=== PATIENT | female | born 1975 | race Caucasian/White ===

== ENCOUNTER 2016-04-30 15:04 | Emergency (ER) | payer MEDICAID ==
[~2016-04-30] VITALS: Ht 157.5 cm; Wt 58.5 kg
[~2016-04-30 15:04] MED LIST: HYDR-906 PO; ONDA4TAB14 PO; htn meds
[2016-04-30 15:10] VITALS: Ht 157.5 cm; Wt 58.5 kg
[2016-04-30] MEDS ORDERED: morphine 2 MG INJ IV STA (16:17)
[2016-04-30] MEDS ORDERED: ONDANSETRON 4 MG INJ ONE (16:29)
[2016-04-30] MEDS ORDERED: ONDANSETRON 4 MG INJ IV STA (16:39)
[2016-04-30 16:41] LABS: BASOPHILS % 0.1 % (0.0-2.0); EOSINOPHILS % 0.2 % (0.0-7.0); HEMATOCRIT 41.2 % (37.0-47.0); HEMOGLOBIN 13.9 g/dl (12.0-16.0); LYMPHOCYTES # 1.4 10^3/ul (0.8-2.9); LYMPHOCYTES % 11.6 % (15.0-51.0); MEAN CORPUSCULAR HEMOGLOBIN 30.6 pg (29.0-33.0); MEAN CORPUSCULAR HGB CONC 33.8 g/dl (32.0-37.0); MEAN CORPUSCULAR VOLUME 90.4 fl (82.0-101.0); MEAN PLATELET VOLUME 7.9 fl (7.4-10.4); MONOCYTE # 0.2 10^3/ul (0.3-0.9); MONOCYTES % 1.7 % (0.0-11.0); NEUTROPHIL # 10.5 10^3/ul (1.6-7.5); NEUTROPHILS % 86.4 % (39.0-77.0); PLATELET COUNT 291 10^3/UL (140-440); RED BLOOD COUNT 4.56 10^6/ul (4.20-5.40); RED CELL DISTRIBUTION WIDTH 14.3 % (11.5-14.5); UNCORRECTED WBC 12.1 10^3/ul (4.8-10.8); WHITE BLOOD COUNT 12.1 10^3/ul (4.8-10.8)
--- NOTE | 2016-04-30 16:42 | ERD ---
ER Documentation Chief Complaint Date/Time DATE: 04/30/16 TIME: 16:37 Chief Complaint UPPER RT ABD PAIN, HX GAL STONES HPI 40-year-old female presents to ER with epigastric and right upper quadrant pain x 3 hours. Patient describes pain as sharp, 8/10 scale. States pain is non radiating. Patient denies any nausea or vomiting. No fevers or chills. Patient denies any palpitations. Patient denies any dyspnea on exertion or dyspnea. No dysuria or hematuria. No constipation or diarrhea. patient denies any acid reflux. Patient denies any sick contacts. Patient did not take any medication for pain. Recently gave vaginally about 1 month ago and states patient has been taking medications for "blood pressure." No cough, shortness breath or difficulty breathing. ROS All systems reviewed and are negative except as per history of present illness. Medications Home Meds Active Scripts Ondansetron Hcl* (Zofran*) 4 Mg Tablet, 4 MG PO Q6H for NAUSEA AND/OR VOMITING, #10 TAB Prov:GABRIEL RICE NP 04/30/16 Ibuprofen* (Motrin*) 600 Mg Tab, 600 MG PO Q6, #15 TAB Prov:GABRIEL RICE NP 04/30/16 Hydrocodone/Acetaminophen (Edison 5-325 Tablet) 1 Each Tablet, 1 TAB PO Q6H Y for PAIN, #10 TAB Prov:GABRIEL RICE NP 04/30/16 Ondansetron (Ondansetron Odt) 4 Mg Tab.rapdis, 4 MG PO Q8 Y for NAUSEA AND/OR VOMITING, #20 TAB Prov:LUCÍA FRENCH NP 04/16/16 Hydrocodone/Acetaminophen (Edison 5-325 Tablet) 1 Each Tablet, 1 TAB PO Q6H Y for SEVERE PAIN LEVEL 7-10, #20 TAB Prov:LUCÍA FRENCH NP 04/16/16 Reported Medications [htn meds] Unknown Strength No Conflict Check 04/16/16 Allergies Allergies: Coded Allergies: No Known Allergy (Unverified , 03/25/16) PMhx/Soc History of Surgery: Yes (Episiotomy) Anesthesia Reaction: No Hx Neurological Disorder: No Hx Respiratory Disorders: No Hx Cardiac Disorders: Yes (Gestational HTN) Hx Psychiatric Problems: No Hx Miscellaneous Medical Probl: Yes (GALL STONES) Hx Alcohol Use: No Hx Substance Use: No Hx Tobacco Use: No Smoking Status: Never smoker Physical Exam Vitals Vital Signs Date Time Temp Pulse Resp B/P Pulse Ox O2 Delivery O2 Flow Rate FiO2 04/30/16 18:01 98.0 59 18 140/77 99 Room Air 04/30/16 15:10 98.0 60 18 118/69 99 Physical Exam Const: writhing in pain Head: Atraumatic Eyes: Normal Conjunctiva ENT: Normal External Ears, Nose and Mouth. Neck: Full range of motion..~ No meningismus. Resp: Clear to auscultation bilaterally Cardio: Regular rate and rhythm, no murmurs Abd: Soft, non distended. Normal bowel sounds. Tenderness to epigastric region and right upper quadrant. No rebound tenderness. Skin: No petechiae or rashes Back: No midline or flank tenderness. No CVA tenderness Ext: No cyanosis, or edema Neur: Awake and alert Psych: Normal Mood and Affect Result Diagram: 04/30/16 1623 04/30/16 1623 Results 24 hrs Laboratory Tests Test 04/30/16 16:23 04/30/16 17:10 Alanine Aminotransferase (ALT/SGPT) 46IU/L Albumin 4.7g/dl Albumin/Globulin Ratio 1.23 Alkaline Phosphatase 104IU/L Anion Gap 22 Aspartate Amino Transf (AST/SGOT) 68IU/L Basophils # 0.010^3/ul Basophils % 0.1% Blood Urea Nitrogen 10mg/dl Calcium Level 9.6mg/dl Carbon Dioxide Level 23mmol/L Chloride Level 105mmol/L Creatinine 0.63mg/dl Direct Bilirubin 0.00mg/dl Eosinophils # 0.010^3/ul Eosinophils % 0.2% Globulin 3.80g/dl Glucose Level 125mg/dl Hematocrit 41.2% Hemoglobin 13.9g/dl Indirect Bilirubin 0.2mg/dl Lipase 113U/L Lymphocytes # 1.410^3/ul Lymphocytes % 11.6% Mean Corpuscular Hemoglobin 30.6pg Mean Corpuscular Hemoglobin Concent 33.8g/dl Mean Corpuscular Volume 90.4fl Mean Platelet Volume 7.9fl Monocytes # 0.210^3/ul Monocytes % 1.7% Neutrophils # 10.510^3/ul Neutrophils % 86.4% Nucleated Red Blood Cells # 0.010^3/ul Nucleated Red Blood Cells % 0.0/100WBC Platelet Count 94186^3/UL Potassium Level 4.5mmol/L Red Blood Count 4.5610^6/ul Red Cell Distribution Width 14.3% Sodium Level 145mmol/L Total Bilirubin 0.2mg/dl Total Protein 8.5g/dl White Blood Count 12.110^3/ul Bedside Urine Blood Negative Bedside Urine Glucose (UA) Negative Bedside Urine Ketones (LAB) Negative Bedside Urine Leukocyte Esterase (L Negative Bedside Urine Nitrite (LAB) Negative Bedside Urine Protein (LAB) 1+ Bedside Urine pH (LAB) 7.5 Current Medications Medications (Trade) Dose Ordered Sig/Sujata Route PRN Reason Start Time Stop Time Status Last Admin Dose Admin Morphine Sulfate (morphine) 2 mg ONCE STAT IV 04/30/16 16:17 04/30/16 16:19 DC 04/30/16 16:41 Ondansetron HCl (Zofran Inj) 4 mg STK-MED ONCE .ROUTE 04/30/16 16:29 04/30/16 16:30 DC Ondansetron HCl 4 mg 4 mg ONCE STAT IV 04/30/16 16:39 04/30/16 16:43 DC 04/30/16 16:43 Sodium Chloride (NS) 1,000 ml @ 1,000 mls/hr Q1H ONCE IV 04/30/16 17:30 04/30/16 18:02 DC 04/30/16 17:12 Procedures/MDM ED COURSE: The patient was stable throughout ED course. I kept the patient and/or family informed of laboratory and diagnostic imaging results throughout the ED course. Laboratory CBC slightly elevated WBC 12.1. CMP Anion gap 22, AST 68, ALT 46. Lipase 113 Urine dip 1+ protein, otherwise negative Urine negative Imaging Ultrasound gallbladder Patient: JOS ZIEGLER : 1975 Age: 40 Sex: F MR #: [id number] DOS: 04/30/16 1617 Ordering MD: GABRIEL RICE NP Location: E Room/Bed: PROCEDURE: US Abdomen. CLINICAL INDICATION: abdominal pain TECHNIQUE: Multiple real-time images were acquired of the patient's right upper quadrant abdomen and retroperitoneum utilizing a high resolution transducer. COMPARISON: 04/16/2016 FINDINGS: The liver demonstrates normal echogenicity. The liver is normal in size and no focal solid lesions are seen. The liver measures 14.7 cm in length. The portal vein is patent with normal direction of flow. No intrahepatic biliary dilatation is seen. The gallbladder is moderately distended. Multiple calcified gallstones are identified within the gallbladder. There is no pericholecystic fluid or gallbladder wall thickening. The common bile duct measures 12 mm in maximal dimension. The visualized portions of the pancreas are unremarkable. The tail of the pancreas is not seen. No free fluid is identified. The right kidney is normal in size, and demonstrate normal echogenicity and cortical thickness. The right kidney measures 9.2 cm in long dimension. There is no evidence of hydronephrosis. There are no kidney stones. RPTAT: AA IMPRESSION: Moderately distended gallbladder with multiple calcified stones. No evidence of gallbladder wall thickening or pericholecystic fluid. Significantly dilated CBD measuring 12 mm, worsened since the prior study. MDM: 40-year-old female presents emergency department for right upper quadrant abdominal pain 3 hours. Patient was here 2 weeks ago with similar pain and was diagnosed with gallstones. Was instructed to have MRCP done outpatient however patient was unable to have this done. No vomiting or diarrhea. Pain is nonradiating. IV access obtained and patient given morphine and Zofran while in the ED with good relief of pain. Patient now denying pain and able to walk throughout ER. Labs and ultrasound ordered. CBC significant for slightly elevated WBC 12.1. CMP shows Anion gap 22, AST 68, ALT 46. Gallbladder US reviewed by radiologist as moderately distended gallbladder with multiple calcified stones. No evidence of gallbladder wall thickening or pericholecystic fluid. Significantly dilated CBD measuring 12 mm, worsened since the prior study. Discussed findings with Dr. Collins and we agree that patient is appropriate for outpatient management and needs close follow up with GI. Low suspicion for cholecystitis, choledocholithiasis, cholangitis, appendicitis , bowel obstruction and acute myocardial infarction. Patient will be given prescriptions for Edison and Zofran. Instructed patient follow up closely with PCP and needs urgent referral to GI. Copies of results provided to patient. Faroese translation provided and patient verbalizes understanding. All questions answered at discharge. Departure Diagnosis: Primary Impression: Cholelithiasis Cholelithiasis location: other site Biliary obstruction: without biliary obstruction Qualified Code: K80.80 - Biliary calculus of other site without obstruction Condition: Stable GABRIEL RICE NP Apr 30, 2016 16:42
[2016-04-30 16:50] LABS: CONDITION 1
[2016-04-30 16:58] LABS: ALBUMIN 4.7 g/dl (3.3-4.9)
[2016-04-30 16:59] LABS: POTASSIUM 4.5 mmol/L (3.5-5.1)
[2016-04-30 17:01] LABS: ALBUMIN/GLOBULIN RATIO 1.23; BILIRUBIN,INDIRECT 0.2 mg/dl (0-1.1); BILIRUBIN,TOTAL 0.2 mg/dl (0.2-1.3); CREATININE 0.63 mg/dl (0.44-1.00); TOTAL PROTEIN 8.5 g/dl (6.1-8.1)
[2016-04-30 17:02] LABS: CALCIUM 9.6 mg/dl (8.4-10.2)
--- NOTE | 2016-04-30 17:02 | RADRPT ---
PROCEDURE: US Abdomen. CLINICAL INDICATION: abdominal pain TECHNIQUE: Multiple real-time images were acquired of the patient's right upper quadrant abdomen a nd retroperitoneum utilizing a high resolution transducer. COMPARISON: 04/16/2016 FINDINGS: The liver demonstrates normal echogenicity. The liver is normal in size and no focal solid lesions are seen. The liver measures 14.7 cm in length. The portal vein is patent with normal direction of f low. No intrahepatic biliary dilatation is seen. The gallbladder is moderately distended. Multiple calcified gallstones are identified within the ga llbladder. There is no pericholecystic fluid or gallbladder wall thickening. The common bile duct m easures 12 mm in maximal dimension. The visualized portions of the pancreas are unremarkable. The tail of the pancreas is not seen. No free fluid is identified. The right kidney is normal in size, and demonstrate normal echogenicity and cortical thickness. The right kidney measures 9.2 cm in long dimension. There is no evidence of hydronephrosis. There are no kidney stones. RPTAT: AA IMPRESSION: Moderately distended gallbladder with multiple calcified stones. No evidence of gallbladder wall th ickening or pericholecystic fluid. Significantly dilated CBD measuring 12 mm, worsened since the prior study. .Telly Garza MD, Date Time Electronically viewed and signed by .Telly Garza MD, on 04/30/2016 17:02 .S/
[2016-04-30 17:09] LABS: URINE BLOOD (Dip) POC Negative (NEGATIVE)
[2016-04-30] MEDS ORDERED: SOD CHLORIDE 0.9% 1,000 ML IV ONE (17:30)
[2016-04-30] MEDS ORDERED: HYDR-906 PO (17:42)
[2016-04-30] MEDS ORDERED: IBUP-1542 PO (17:42)
[2016-04-30] MEDS ORDERED: ONDA4TAB8 PO (17:42)
[2016-04-30 18:01] VITALS: BP 140/77; PULSE 59; RESP 18; TEMP 98
== END 2016-04-30 18:02 | disposition home or self-care (01) ==
LOC: FTE 15:04
DX: K80.80 Other cholelithiasis without obstruction (principal)
CPT/HCPCS: 36415; 76705; 80053; 81003; 83690; 85025; 93005; 96374; 96375; J2270; J2405; J7030; Z7502